=== PATIENT | female | born 1965 | race African-American/Black ===

== ENCOUNTER 2023-04-04 18:14 | Emergency (ER) | payer OTHER ==
[~2023-04-04] VITALS: Ht 175.3 cm; Wt 92.0 kg
[2023-04-04 18:20] VITALS: BP 159/95; TEMP 98.8; O2SAT 100
[2023-04-04 18:25] VITALS: PULSE 91; RESP 16
[2023-04-04] MEDS ORDERED: ONDANSETRON HCL 4MG TABLET PO ONE (18:45)
[2023-04-04 19:32] LABS: BASOPHILS % 0.6 % (0.0-2.0); HEMATOCRIT. 41.7 % (36.0-48.0); LYMPHOCYTES % 45.9 % (20.0-50.0); MEAN CORPUSCULAR HGB CONC 33.6 g/dL (31.0-37.0); MEAN CORPUSCULAR VOLUME 95.2 fL (81.0-99.0); MONOCYTES % 7.3 % (2.0-8.0); NEUTROPHILS % 42.2 % (40.0-76.0); PLATELET 304 x1000/uL (130-400); RED BLOOD CELL COUNT 4.38 mill/uL (4.2-5.4); RED CELL DISTRIBUTION WIDTH 14.7 % (11.6-14.6); WHITE BLOOD COUNT 7.2 x1000/uL (4.5-11.0)
[2023-04-04 19:49] LABS: ALANINE AMINOTRANSFERASE 11 IU/L (10-49); ALBUMIN 4.5 g/dL (3.2-4.8); ASPARTATE AMINOTRANSFERASE 14 IU/L (<34); BILIRUBIN TOTAL 0.5 mg/dL (0.1-1.0); CALCIUM 10.1 mg/dL (8.7-10.4); CARBON DIOXIDE 28 mEq/L (21-32); CHLORIDE 107 mEq/L (98-107); GLUCOSE 92 mg/dL (70-105); POTASSIUM 4.5 mEq/L (3.5-5.1); SODIUM 142 mEq/L (136-145); UREA NITROGEN BLOOD 16 mg/dL (9-23)
[2023-04-04] MEDS ORDERED: ONDA4TAB11 PO (20:29)
== END 2023-04-04 20:39 | disposition home or self-care (01) ==
LOC: ER 18:14
DX: R11.2 Nausea with vomiting, unspecified (principal); R19.7 Diarrhea, unspecified; I10 Essential (primary) hypertension; Z98.890 Other specified postprocedural states
CPT/HCPCS: 99283; 80053; 83690; 85025; 36415; Q0162

== ENCOUNTER 2024-08-06 19:38 | Emergency (ER) | payer OTHER ==
[~2024-08-06] VITALS: Ht 172.7 cm; Wt 87.0 kg
[~2024-08-06 19:38] MED LIST: ONDA-239 PO
[2024-08-06 19:54] VITALS: O2SAT 96
[2024-08-06 20:28] VITALS: BP 125/87; PULSE 92; RESP 18; TEMP 36.8; O2SAT 99
[2024-08-06] MEDS ORDERED: P50 MT (20:58)
[2024-08-06] MEDS ORDERED: AZIT250T12 MT (20:58)
[2024-08-06] MEDS ORDERED: ALBU18HF2 IH (20:58)
[2024-08-06] MEDS ORDERED: AMOX1TAB16 MT (20:58)
== END 2024-08-06 22:03 | disposition home or self-care (01) ==
LOC: ER 19:38
DX: J20.9 Acute bronchitis, unspecified (principal); I10 Essential (primary) hypertension; E78.5 Hyperlipidemia, unspecified; Z90.710 Acquired absence of both cervix and uterus; Z79.899 Other long term (current) drug therapy
CPT/HCPCS: 99283